=== PATIENT | male | born 1990 | race Caucasian/White ===

== ENCOUNTER → 2023-04-08 11:46 | Outpatient (CLI) | payer OTHER, SELFPAY ==
[2023-04-08 12:36] LABS: Semen Sperm Prescence Post-Vas Present (ABSENT)
== END ==
PROVIDERS: Referring Provider Specialist; Visit Provider Specialist
DX: Z98.52 Vasectomy status (principal)
CPT/HCPCS: 89321

== ENCOUNTER → 2024-11-27 18:48 | Outpatient (CLI) | payer OTHER, SELFPAY ==
--- NOTE | 2024-11-27 | DI.MRI.S_ITS ---
PROCEDURE: MR CERVICAL SPINE WO CON INDICATIONS: Pain in R Arm, Neck, and Thoracic TECHNIQUE: Noncontrast sagittal T1 spin echo and T2 fast spin echo, sagittal STIR, foraminal oblique sagittal T2 fast spin echo, and axial gradient echo or T2 fast spin echo through the cervical spine. COMPARISON: None. FINDINGS: Image quality: Excellent. Alignment and Curvature: There is normal bony alignment. Bone Marrow: Marrow demonstrates normal overall signal. Spinal Cord: Visualized spinal cord has normal size and signal. No cerebellar tonsillar herniation. Paraspinous Soft Tissues: No paravertebral masses. Prevertebral soft tissues are normal in thickness. C2-C3: No significant central canal or neural foraminal stenosis. C3-C4: Mild facet and uncovertebral arthropathy. No central canal stenosis. No significant neural foraminal stenosis. C4-C5: Disc desiccation and central disc protrusion abutting and mildly compressing the ventral cord. Moderate central canal stenosis. Facet and uncovertebral arthropathy. Mild bilateral neural foraminal stenosis. C5-C6: Disc desiccation and large posterior disc osteophyte complex abutting and compressing the cervical cord and effacing CSF space. Severe central canal stenosis. Facet and uncovertebral arthropathy. Severe bilateral neural foraminal stenosis. C6-C7: Disc desiccation and mild posterior disc osteophyte complex. No significant central canal stenosis. Facet and uncovertebral arthropathy. Moderate bilateral neural foraminal stenosis. C7-T1: No central canal or neural foraminal stenosis. IMPRESSION: 1. Multilevel degenerative changes of the cervical spine as described above. 2. There is severe central canal stenosis at C5-C6. Moderate central canal stenosis at C4-C5. 3. Severe bilateral neural foraminal stenosis at C5-C6. Moderate bilateral neural foraminal stenosis at C6-C7. Dictated by: Emir Tyler M.D. on 11/27/2024 at 20:29 Approved by: Emir Tyler M.D. on 11/27/2024 at 20:31
--- NOTE | 2024-11-27 | DI.MRI.S_ITS ---
PROCEDURE: MR THORACIC SPINE WO CON INDICATIONS: Pain in R Arm, Neck, and Thoracic TECHNIQUE: Noncontrast sagittal T1 spine echo and T2 fast spin echo, sagittal STIR, and T2 fast spin echo through the thoracic spine. COMPARISON: None. FINDINGS: Image quality: Excellent. Alignment and Curvature: There is normal bony alignment. Bone Marrow: Marrow is of normal overall signal. No acute vertebral body compression fractures. Spinal Cord: Visualized spinal cord is normal in size and signal. Paraspinous Soft Tissues: No paravertebral masses. Miscellaneous: Mild disc desiccation and small disc bulges at several levels. No significant central canal or neural foraminal stenosis. IMPRESSION: Mild degenerative changes of the thoracic spine without significant central canal or neural foraminal stenosis. Dictated by: Emir Tyler M.D. on 11/27/2024 at 20:31 Approved by: Emir Tyler M.D. on 11/27/2024 at 20:33
--- NOTE | 2024-11-27 | DI.MRI.S_ITS ---
PROCEDURE: MR LUMBAR SPINE WO CON INDICATIONS: Pain in R Arm, Neck, and Thoracic TECHNIQUE: Noncontrast sagittal T1 spin echo and T2 fast echo, sagittal STIR, and T2 fast spin echo through the lumbar spine. In cases with scoliosis, additional coronal T2 fast spin echo may be performed. COMPARISON: None. FINDINGS: Image quality: Excellent. Alignment and Curvature: There is normal bony alignment. Bone Marrow: Marrow is of normal overall signal. No acute vertebral body compression fractures. Spinal Cord: Conus medullaris terminates at the L1 level. Visualized cord demonstrates normal signal and size. Paraspinous Soft Tissues: No paravertebral masses. T12-L1: Normal appearance. L1-L2: Normal appearance. L2-L3: Normal appearance. L3-L4: Facet arthropathy. No central canal stenosis. Mild bilateral neural foraminal stenosis. L4-L5: Facet arthropathy. No central canal stenosis. Mild bilateral neural foraminal stenosis. L5-S1: Disc desiccation and mild height loss. Mild disc bulge with superimposed small central disc protrusion and posterior annular tear. No central canal stenosis. Facet arthropathy. Moderate bilateral neural foraminal stenosis. IMPRESSION: 1. Degenerative changes of the lumbar spine as described above. 2. No significant central canal stenosis. 3. Moderate bilateral neural foraminal stenosis at L5-S1. Dictated by: Emir Tyler M.D. on 11/27/2024 at 20:33 Approved by: Emir Tyler M.D. on 11/27/2024 at 20:35
== END ==
LOC: MRI 18:50
PROVIDERS: Referring Provider Student in an Organized Health Care Education/Training Program; Visit Provider Student in an Organized Health Care Education/Training Program
DX: M47.812 Spondylosis without myelopathy or radiculopathy, cervical region (principal); M48.02 Spinal stenosis, cervical region; M47.814 Spondylosis without myelopathy or radiculopathy, thoracic region; M47.816 Spondylosis without myelopathy or radiculopathy, lumbar region; M47.817 Spondylosis without myelopathy or radiculopathy, lumbosacral region; M48.07 Spinal stenosis, lumbosacral region; M54.2 Cervicalgia; M54.6 Pain in thoracic spine; M54.50 Low back pain, unspecified
CPT/HCPCS: 72141; 72146; 72148